=== PATIENT | male | born 1950 | race Native Hawaiian/Other Pacific Islander ===

== ENCOUNTER 2020-07-28 03:39 | Emergency (ER) | payer OTHER ==
[~2020-07-28] VITALS: Ht 172.7 cm; Wt 90.7 kg
[2020-07-28 03:39] VITALS: BP 107/60; TEMP 97.9
[~2020-07-28 03:39] MED LIST: CLOP75TA2 PO
[2020-07-28 04:01] LABS: PLATELET COUNT 228 K/uL (142-355)
[2020-07-28 04:06] LABS: POTASSIUM 4.4 mmol/L (3.6-5.2)
[2020-07-28] MEDS ORDERED: AMOX875T8 PO (06:32)
[2020-07-28] MEDS ORDERED: LIPITOR80 MG PO (06:32)
[2020-07-28] MEDS ORDERED: FENOFIBRATE160 MG PO (06:35)
[2020-07-28] MEDS ORDERED: FURO20TA67 PO (06:37)
[2020-07-28] MEDS ORDERED: GLIP10TA55 PO (06:38)
[2020-07-28] MEDS ORDERED: PAXIL10 MG PO (06:40)
[2020-07-28] MEDS ORDERED: LOSA50TA PO (06:40)
[2020-07-28] MEDS ORDERED: PROP40TA53 PO (06:41)
[2020-07-28] MEDS ORDERED: TRIA0.1C19 TOP (06:43)
[2020-08-07] MEDS ORDERED: PARO20TA3 PO (09:08)
[2020-08-07] MEDS ORDERED: OLANZAPINE5 MG PO (09:15)
[2020-08-07] MEDS ORDERED: FOLI1TAB26 PO (09:15)
[2020-08-07] MEDS ORDERED: ESCI10TA PO (09:15)
[2020-08-07] MEDS ORDERED: CHOL100034 PO (09:16)
== END 2020-07-28 05:35 | disposition other institution (70) ==
LOC: ED 03:39
PROVIDERS: Family Medicine
DX: R45.851 Suicidal ideations (principal); F32.89 Other specified depressive episodes; Z11.59 Encounter for screening for other viral diseases; Z04.6 Encounter for general psychiatric examination, requested by authority
CPT/HCPCS: 36415; 80053; 81000; 85027; 87635; 93005; 99283; U0003